=== PATIENT | female | born 1980 | race Caucasian/White ===

== ENCOUNTER 2019-06-02 12:48 | Emergency (ER) | payer MEDICARE, MEDICAID, SELFPAY ==
[2019-06-02 13:08] VITALS: BP 106/82; PULSE 75; RESP 18; TEMP 37.2; O2SAT 98
--- NOTE | 2019-06-02 13:11 | ED.GENADULT ---
HPI - General Adult General Chief complaint: Ear Stated complaint: nausea/dizziness Time Seen by Provider: 06/02/19 13:12 Source: patient and RN notes reviewed Mode of arrival: ambulatory Limitations: no limitations History of Present Illness HPI narrative: This is a 38 years old female presents to the office for an evaluation of nausea and dizziness for a few weeks. Associated with left ear clogged/can't hear really well. Denies other symptoms include chest pain, cough, shortness of breath, vomiting, or diarrhea. Denies sick contact. She does not remember when the last time she got her lithium level check. Her friend drove her here. Related Data Home Medications Medication Instructions Recorded Confirmed lithium carbonate 450 mg PO BID 06/02/19 06/02/19 propranolol 10 mg PO BID 06/02/19 06/02/19 risperidone [Risperdal] 3 mg PO BID 06/02/19 06/02/19 Allergies Allergy/AdvReac Type Severity Reaction Status Date / Time piperacillin Allergy Mild Rash Verified 06/02/19 13:10 Review of Systems Review of Systems: Narrative: CONSTITUTIONAL: Denies fever ENT: Reports earsclogged. CARDIOVASCULAR: Denies chest pain, palpitation RESPIRATORY: Denies dyspnea, wheezing, cough GASTROINTESTINAL: Denies abdominal pain, vomiting, diarrhea. Reports nausea. GENITOURINARY: Denies urinary symptoms or discharge SKIN: Denies rash MUSCULOSKELETAL: Denies acute back pain NEUROLOGIC: Denies lightheaded. Reports dizziness. PMFSH Past Medical History Medical History (Updated 06/02/19 @ 13:31 by GRISELDA Bowman) Bipolar 1 disorder, depressed Diverticulitis of large intestine with perforation and abscess Family History Family History Other Asthma Diabetes mellitus Hypertension Social History Social History Smoking status: Never smoker Alcohol intake: never Gender identity (if verbalized by the patient): Female Comments At time of signature, I agree with nursing past medical, surgical, social and family history. There is no relevant family history pertinent to the presenting complaint. Exam Narrative: Exam Narrative: GENERAL: This is a well-nourished, answer question appropriately, in no apparent distress. EYES: TANNA. EMOI. Sclera clear/white. Vision is grossly intact. EARS: External ears normal, auditory canals clear and without drainage, bilateral TMs noted cerumen impaction. Hearing grossly intact. NOSE: External nose normal with no obvious nasal discharge, nares without redness, no rhinorrhea. THROAT: Mucous membranes moist, posterior pharynx clear. NECK: Neck supple, non-tender without lymphadenopathy, masses or thyromegaly. CARDIOVASCULAR: Regular rate and rhythm without murmurs, gallops, or rubs. RESPIRATORY: Clear to auscultation. Breath sounds equal bilaterally. No wheezes, rales, or rhonchi. GASTROINTESTINAL: Abdomen soft, non-tender, nondistended. Bowel sounds are active. No hepato-splenomegaly, or palpable masses. No guarding. SKIN: warm, intact with no suspicious lesions or rash, good texture and turgor. NEURO: awake, alert, and oriented to person, place and time. There were no obvious focal neurologic abnormalities. Steady gait Gilberto Coma Scale Eye Opening: Spontaneous 4 [place] Coma Scale Motor: Obeys Commands 6 Gilberto Coma Scale Verbal: Oriented 5 Course Course Emergency Course: I spoke to patient psychiatrist regarding her lithium level, the psychiatrist stated that her lithium level needs to be rechecked (last one was over a year ago) however she highly doubt is lithium level because patient is on a very low dose of Lithum. However she stated that patient liver enzyme is very high, which she sent a letter to patient to follow-up with primary care doctor however patient did not remember seeing the letter or contacting her primary care doctor regarding this matter. Vital Signs V
== END 2019-06-02 13:45 | disposition home or self-care (01) ==
PROVIDERS: Emergency Provider Nurse Practitioner; PCP Family Medicine
DX: H61.23 Impacted cerumen, bilateral (principal); F31.9 Bipolar disorder, unspecified
CPT/HCPCS: 69209; 99212; A9270; G0463

== ENCOUNTER 2019-06-21 11:13 | Emergency (ER) | payer MEDICARE, MEDICAID, SELFPAY ==
--- NOTE | ~2019-06-21 | CT_ITS ---
EXAMINATION: CT abdomen pelvis w con DATE: 06/21/2019 12:46 INDICATION: Low abdominal pain. TECHNIQUE: Computed tomography (CT) of the abdomen and pelvis was performed with 100 mL Omnipaque 350 intravenous contrast. Automated exposure control and iterative reconstruction technique were employe d. The dose-length product was 1200.52 mGy-cm. COMPARISON: CT abdomen and pelvis 12/22/2017 FINDINGS: The visualized portions of the lung bases demonstrate mild atelectasis. There is a trace le ft pleural effusion. The heart size is normal. No pericardial effusion. Again seen is a 13 mm hyperen hancing mass in right hepatic lobe, likely a hemangioma or focal nodular hyperplasia. The gallbladder is distended, likely secondary to fasting. The gallbladder, pancreas, adrenal glands, and right kidn ey are normal. There is cortical thinning of left kidney. There are scattered diverticula of the colo n. There is fat stranding around a sigmoid diverticulum with trace fluid. There is wall thickening of the sigmoid colon. These findings are consistent with diverticulitis. The appendix is normal. There are mildly dilated loops of jejunum, consistent with adynamic ileus. There are no pathologically enla rged lymph nodes. There is a 2.0 cm cyst in the vulva on the right. There is mild thoracolumbar spond ylosis. IMPRESSION: 1. Acute sigmoid diverticulitis. No perforation or drainable abscess. Reviewed, dictated and finalized at location A.
[2019-06-21 11:24] VITALS: BP 130/90; PULSE 130; RESP 26; TEMP 36.7; O2SAT 100
--- NOTE | 2019-06-21 11:30 | ED.ABDPAIN ---
HPI - Abdominal Pain General Chief Complaint: Abdominal Pain Stated Complaint: stomach pain and no BM x 1 week Time Seen by Provider: 06/21/19 11:21 Source: patient, RN notes reviewed and old records reviewed Mode of arrival: ambulatory Limitations: no limitations History of Present Illness HPI narrative: Pt is a 38 y/o female who presents to the ED with c/o worsening suprapubic pain starting 1 week ago. According to old records, she was diagnosed with diverticulitis with perforation and an abscess in 2018. She notes that she hasn't had a normal BM for the past week. Pt states that she has had constant pain in her suprapubic region for the past week. She rates her pain at 8/10. Pt reports nausea, vomiting, and a decreased intake accompanying her pain, but denies any dysuria or urinary frequency. She notes that she hasn't taken any pain medications for her symptoms. MD elicited complaint: abdominal pain Pertinent past history: diverticulitis Onset (ago): week(s) (1) Pain Consistency: constant Location: suprapubic Pain scale (0-10): 8 Associated symptoms: nausea, vomiting, constipation and other (decreased intake) Related Data Home Medications Medication Instructions Recorded Confirmed lithium carbonate 450 mg PO BID 06/02/19 06/02/19 propranolol 10 mg PO BID 06/02/19 06/02/19 risperidone [Risperdal] 3 mg PO BID 06/02/19 06/02/19 Allergies Allergy/AdvReac Type Severity Reaction Status Date / Time piperacillin Allergy Mild Rash Verified 06/02/19 13:10 Review of Systems Review of Systems: All systems reviewed & are unremarkable except as noted in HPI and below Constitutional: Constitutional: Reports other (decreased intake) Gastrointestinal: Gastrointestinal: Reports abdominal pain (suprapubic pain), Reports constipation, Reports nausea and Reports vomiting Genitourinary: Genitourinary: Denies dysuria and Denies other (urinary frequency) FOR[facility]LY [facility], [facility] Past Medical History Medical History Anxiety Bipolar 1 disorder, depressed Diverticulitis of large intestine with perforation and abscess GERD (gastroesophageal reflux disease) Surgical History Surgical History History of colon surgery repair of perforated diverticulum and abscess History of lumpectomy of right breast Social History Social History Smoking status: Never smoker Alcohol intake: never Gender identity (if verbalized by the patient): Female Exam Const: General: alert Nutritional Appearance: obese Orientation/consciousness: patient oriented x3 Eyes: Conjunctivae: conjunctivae normal Pupils: Equal, round and reactive pupils present EOM: EOMs intact bilaterally Neck: Neck: no lymphadenopathy Chest: Chest palpation & inspection: normal inspection of the chest Resp: Effort & Inspection: normal respiratory effort, not tachypneic and no use of accessory muscles Auscultation: clear to auscultation bilaterally Cardio: Rate: regular rate Rhythm: regular rhythm Heart sounds: no murmurs GI: GI Palp: Yes Soft to palpation, Yes Tenderness to palpation present (GI) (bilateral lower abdomen), No Guarding due to palpation present (GI), No Rigid due to palpation and No Hernia present Skin: General skin exam: normal color Rashes: no rashes Neuro: General: patient oriented x3, moves all extremities, no meningeal signs, no focal motor deficits and CN's II-XI intact bilaterally Course Reevaluation(s) Reevaluation #1: Patient states she feels better. I discussed she has diverticulitis with no abscess or perforation. She was given dose of levaquin. Date: 06/21/19 Time: 14:46 Vital Signs Vital signs: Vital Signs Temperature 98.1 F 06/21/19 11:24 Pulse Rate 130 H 06/21/19 11:24 Respiratory Rate 26 H 06/21/19 11:24 Blood Pressure 130/90 06/21/19 11:24 Pulse Oximetry 100 06/21/19 11:24
[2019-06-21] MEDS: ONDANSETRON INJ 4 MG/2 ML VIAL IV PUSH (11:44)
[2019-06-21] MEDS: LACTATED RINGERS 1,000 ML 999 ML IV CONT (11:44)
[2019-06-21] MEDS: MORPHINE SULFATE 4 MG/ML INJ IV PUSH (11:44)
[2019-06-21 12:06] LABS: Basophils Percent Auto 0.1 % (0.2-1.2); Eosinophils Percent Auto 0.2 % (0-4.4); Hematocrit 42.2 % (37.0-47.0); Hemoglobin 14.1 g/dL (12.0-15.0); Immature Granulocyte Absolute 0.04 K/mm3 (0.00-0.031); Immature Granulocyte Percent A 0.3 % (0-0.5); Lymphocytes Absolute Auto 1.38 K/mm3 (0.9-3.2); Lymphocytes Percent Auto 9.8 % (18.3-44.2); Mean Corpuscular HGB Conc 33.4 g/dl (32-36); Mean Corpuscular Hemoglobin 29.7 pg (26-34); Mean Corpuscular Volume 88.8 fl (80-100); Neutrophils Absolute Auto 11.6 K/mm3 (1.3-6.7); Neutrophils Percent Auto 82.6 % (45.5-73.1); Platelet Count Result 239 k/mm3 (150-375); Red Blood Count 4.75 M/mm3 (4.2-5.4); Red Cell Distribution Width 11.9 % (11.5-14.5)
[2019-06-21 12:21] LABS: Alanine Aminotransferase 58 U/L (4-35); Alkaline Phosphatase 96 U/L (38-126); Aspartate Amino Transferase 29 U/L (14-36); Bilirubin,Total 1.4 mg/dL (0.2-1.3); Blood Urea Nitrogen 6 mg/dL (7-17); Calcium 8.8 mg/dL (8.4-10.2); Carbon Dioxide 22 mmol/L (22-30); Chloride 102 mmol/L (98-107); Estimated Glomerular Filt Rate > 60; Glucose 154 mg/dL (65-105); Lipase 98 U/L (23-300); Potassium 3.5 mmol/L (3.4-5.0); Sodium 134 mmol/L (137-145)
[2019-06-21 12:31] VITALS: BP 117/89; PULSE 98; RESP 26; O2SAT 99
[2019-06-21 12:37] LABS: Lithium < 0.2 mmol/L (0.6-1.2)
[2019-06-21 12:44] LABS: Add Urine Microscopic? YES; Appearance Urine Cloudy (Clear); Bacteria Urine Trace /hpf; Bilirubin Urine Negative (Negative); Blood Urine 2+ (Negative); Color Urine Amber (Yellow); Glucose Urine UA Negative (Negative); Ketones Urine 1+ mg/dL (Negative); Leukocyte Esterase Ur 1+ LEU/UL (Negative); Mucus Urine Moderate /lpf; Nitrate Urine Negative (Negative); Protein Urine 2+ mg/dL (Negative); Specific Grav Ur 1.025 (1.001-1.035); Squamous Epithelial Cell Urine Many /hpf (Few); WBC Urine 31-50 /hpf
[2019-06-21 13:31] VITALS: BP 117/89; PULSE 98; RESP 20; O2SAT 98
[2019-06-21 14:39] VITALS: PULSE 100; RESP 28; O2SAT 100
[2019-06-21 14:58] VITALS: BP 127/78; PULSE 103; RESP 20; O2SAT 100
== END 2019-06-21 14:59 | disposition home or self-care (01) ==
PROVIDERS: Emergency Provider General Practice; PCP Family Medicine
DX: K57.32 Diverticulitis of large intestine without perforation or abscess without bleeding (principal); F41.9 Anxiety disorder, unspecified; F31.9 Bipolar disorder, unspecified; K21.9 Gastro-esophageal reflux disease without esophagitis
CPT/HCPCS: 36415; 74177; 80053; 80178; 81001; 81025; 83605; 83690; 85025; 87086; 87088; 96361; 96374; 96375; 99284; J1956; J2270; J2405; J7120; Q9967

== ENCOUNTER 2019-12-30 00:26 | Emergency (ER) | payer MEDICARE, MEDICAID, SELFPAY ==
--- NOTE | ~2019-12-30 | XR_ITS ---
EXAMINATION: XR nasal bones min 3V DATE: 12/30/2019 01:03 INDICATION: Nose injury. TECHNIQUE: 3 views of the nasal bones were obtained. COMPARISON: None. FINDINGS: There are fractures of the nasal bones with up to 1 mm displacement. There is mild rightwar d deviation of the nasal septum. IMPRESSION: 1. Fractures of the nasal bones. Reviewed, dictated and finalized at location A.
[2019-12-30 00:30] VITALS: BP 143/102; PULSE 71; RESP 16; TEMP 36.4; O2SAT 99
--- NOTE | 2019-12-30 01:43 | ED.GENADULT ---
HPI - General Adult General Chief complaint: Head Injury Stated complaint: possible broken nose Time Seen by Provider: 12/30/19 00:36 Source: patient Mode of arrival: ambulatory Limitations: no limitations History of Present Illness HPI narrative: This patient is a 39 year old female who presents for evaluation of a possible broken nose. She states a piece of tile accidental fell hitting her in the nose. She reports nasal pain and tenderness. She also reports bleeding from her nose. She states her nose has stopped bleeding. She denies LOC or getting hit in the head. Related Data Home Medications Medication Instructions Recorded Confirmed lithium carbonate 450 mg PO BID 06/02/19 06/02/19 propranolol 10 mg PO BID 06/02/19 06/02/19 risperidone [Risperdal] 3 mg PO BID 06/02/19 06/02/19 Allergies Allergy/AdvReac Type Severity Reaction Status Date / Time piperacillin Allergy Mild Rash Verified 06/02/19 13:10 Review of Systems Review of Systems: All systems reviewed & are unremarkable except as noted in HPI and below PMFSH Past Medical History Medical History (Updated 12/30/19 @ 01:49 by Saundra Gomez MD) Anxiety Bipolar 1 disorder, depressed Diverticulitis of large intestine with perforation and abscess GERD (gastroesophageal reflux disease) Surgical History Surgical History History of colon surgery repair of perforated diverticulum and abscess History of lumpectomy of right breast Family History Family History Other Asthma Diabetes mellitus Hypertension Social History Social History Smoking status: Never smoker Alcohol intake: never Gender identity (if verbalized by the patient): Female Exam Const: General: no acute distress and alert Orientation/consciousness: patient oriented x3 HENMT: Head: normocephalic General nose exam: Abnormal nasal septum present (no septal hematoma) deviated and Other nasal findings present (bleedin nares, nasal tenderness) Throat: posterior oropharynx normal Eyes: EOM: EOMs intact bilaterally Resp: Effort & Inspection: normal respiratory effort Skin: General skin exam: normal color Rashes: no rashes Neuro: General: patient oriented x3 and moves all extremities Course Vital Signs Vital signs: Vital Signs Temperature 97.5 F L 12/30/19 00:30 Pulse Rate 71 12/30/19 00:30 Respiratory Rate 16 12/30/19 00:30 Blood Pressure 143/102 H 12/30/19 00:30 Pulse Oximetry 99 12/30/19 00:30 Temperature 98.2 F 12/30/19 01:55 Pulse Rate 84 12/30/19 01:55 Respiratory Rate 17 12/30/19 01:55 Blood Pressure 145/97 H 12/30/19 01:55 Pulse Oximetry 98 12/30/19 01:55 Medical Decision Making Vital Signs Vital Signs: Vital Signs Temperature 97.5 F L 12/30/19 00:30 Pulse Rate 71 12/30/19 00:30 Respiratory Rate 16 12/30/19 00:30 Blood Pressure 143/102 H 12/30/19 00:30 Pulse Oximetry 99 12/30/19 00:30 Temperature 98.2 F 12/30/19 01:55 Pulse Rate 84 12/30/19 01:55 Respiratory Rate 17 12/30/19 01:55 Blood Pressure 145/97 H 12/30/19 01:55 Pulse Oximetry 98 12/30/19 01:55 Imaging Data Radiologist's impression: nasal xray- nasal fracture present Discharge Plan Discharge Clinical Impression: Closed fracture nasal bone Patient Disposition: Home, Self-Care Condition: Stable Instructions: Antibiotic Form, Nasal Fracture (ED) Additional Instructions: Please read nose fracture instructions. You can follow up with your primary care physician. Take ibuprofen or naproxen for your pain. Prescriptions: No Action risperidone [Risperdal] 3 mg Tablet 3 mg PO BID RF: 0 lithium carbonate 450 mg Tablet Extended Release 450 mg PO BID RF: 0 propranolol 10 mg Tablet 10 mg PO BID RF: 0 hydrocodone-acetaminophen 5-325 m
[2019-12-30 01:55] VITALS: BP 145/97; PULSE 84; RESP 17; TEMP 36.8; O2SAT 98
== END 2019-12-30 01:56 | disposition home or self-care (01) ==
PROVIDERS: Emergency Provider General Practice; PCP Family Medicine
DX: S02.2XXA Fracture of nasal bones, initial encounter for closed fracture (principal); F31.9 Bipolar disorder, unspecified; F41.9 Anxiety disorder, unspecified; K21.9 Gastro-esophageal reflux disease without esophagitis; W20.8XXA Other cause of strike by thrown, projected or falling object, initial encounter
CPT/HCPCS: 70160; 99283

== ENCOUNTER 2020-05-24 12:44 | Outpatient (CLI) | payer MEDICARE, MEDICAID, SELFPAY ==
--- NOTE | ~2020-05-24 | MM_ITS ---
EXAMINATION: MM screening alverto BI w geronimo HISTORY: Screening mammogram TECHNIQUE: Craniocaudal and mediolateral oblique 3-D tomosynthesis images were obtained and synthetic 2-D images were generated. CAD analysis was submitted and interpreted. COMPARISON: No prior mammogram is available for comparison at this institution. BREAST PARENCHYMAL COMPOSITION: There are scattered areas of fibroglandular density. FINDINGS: There is no evidence of suspicious mass, calcification, or architectural distortion to sugg est malignancy in either breast. There has been no suspicious interval change. IMPRESSION: 1. No mammographic evidence of malignancy. 2. Recommend routine screening mammography in one year. BI-RADS Category 1: Negative Reviewed, dictated and finalized at location A. [employer]
== END 2020-05-24 12:45 | disposition home or self-care (01) ==
LOC: ANHIMG 12:47
PROVIDERS: PCP Family Medicine; Visit Provider Obstetrics & Gynecology
DX: Z12.31 Encounter for screening mammogram for malignant neoplasm of breast (principal)
CPT/HCPCS: 77063; 77067

== ENCOUNTER 2021-02-07 13:46 | Emergency (ER) | payer OTHER, SELFPAY ==
[2021-02-07 14:12] VITALS: BP 134/83; PULSE 69; RESP 16; TEMP 37.3; O2SAT 99
--- NOTE | 2021-02-07 14:15 | ED.URI ---
HPI - URI/Sore Throat General Chief Complaint: Upper Respiratory Infection Stated Complaint: cough Time Seen by Provider: 02/07/21 14:15 Source: patient and RN notes reviewed Mode of arrival: ambulatory Limitations: no limitations History of Present Illness HPI Narrative: 40-year-old female presents with concern for cough, chest, back pain with cough, runny, nasal congestion, sore throat for approximately 5 days. She has not been vaccinated for Covid. She denies known sick contacts. She reports she has been using cough drops. Denies other intervention. She denies shortness of breath, body aches, chills, sweats, fever. MD elicited complaint: cough Related Data Home Medications Medication Instructions Recorded Confirmed lithium carbonate 450 mg PO BID 06/02/19 02/07/21 propranolol 40 mg PO BID 06/02/19 02/07/21 aripiprazole 10 mg PO DAILY 02/07/21 02/07/21 dicyclomine 10 mg PO DAILY 02/07/21 02/07/21 Allergies Allergy/AdvReac Type Severity Reaction Status Date / Time No Known Allergies Allergy Verified 02/07/21 14:48 Review of Systems Review of Systems: CONSTITUTIONAL: Reports malaise. Denies chills, sweats, or fever. EYES: Denies visual changes, redness, or discharge. ENT: Reports rhinorrhea, congestion, and sore throat. Denies sinus pain, otalgia CARDIOVASCULAR: Denies chest pain, palpitations, or edema. RESPIRATORY: Reports cough. Denies dyspnea. GASTROINTESTINAL: Denies abdominal pain, nausea, vomiting, diarrhea SKIN: Denies rash or itching. MUSCULOSKELETAL: Denies myalgia. NEUROLOGIC: Denies headache. All systems reviewed & are unremarkable except as noted in HPI and below PMFSH Past Medical History Medical History (Updated 02/07/21 @ 15:10 by Betsy Nathan NP) Anxiety Bipolar 1 disorder, depressed Diverticulitis of large intestine with perforation and abscess GERD (gastroesophageal reflux disease) Surgical History Surgical History History of colon surgery repair of perforated diverticulum and abscess History of lumpectomy of right breast Family History Family History Other Asthma Diabetes mellitus Hypertension Social History Social History Smoking status: Never smoker Alcohol intake: never Gender identity (if verbalized by the patient): Female Comments At time of signature, agree with nursing past medical, surgical, social and family history. There is no relevant family history pertinent to the presenting complaint Exam Narrative: GENERAL: Well-appearing, well-nourished, and in no acute distress. HEAD: Normocephalic EYES: PERRLA, conjunctivae clear ENT: Nares clear, clear discharge. Mucous membranes moist. TM pearly frankel with dull light reflex bilaterally; no tragal tenderness. Oropharynx mildly erythematous without lesions. Tonsils not enlarged and without exudate, no drooling, no hoarseness, no trismus, uvula midline. NECK: Supple. No lymphadenopathy CHEST: Clear to auscultation, breath sounds equal. No wheezing, rhonchi, rales, or stridor. No respiratory distress, speaks in full sentences. Cough noted HEART: Regular rate and rhythm. No murmur heard. SKIN: Warm, dry, no rash. NEURO: Alert and oriented x3. PSYCH: Normal mood and affect Course Course Emergency Course: Patient is aware of diagnosis, understands and agrees to treatment plan. Anticipatory guidance given. Patient agrees to follow-up as directed and is aware of reasons to seek care at the emergency department. Portions of this record may have been created with voice recognition software Vital Signs Vital signs: Vital Signs Temperature 99.2 F 02/07/21 14:12 Pulse Rate 69 02/07/21 14:12 Respiratory Rate 16 02/07/21 14:12 Blood Pressure 134/83 02/07/21 14:12 Pulse Oximetry 99 02/07/21 14:12 Temperature 99.2 F 02/07/21 14:12 Pulse Rate 69
== END 2021-02-07 15:15 | disposition home or self-care (01) ==
PROVIDERS: Emergency Provider Nurse Practitioner; PCP Family Medicine
DX: J06.9 Acute upper respiratory infection, unspecified (principal); Z20.822 Contact with and (suspected) exposure to COVID-19
CPT/HCPCS: 87081; 87426; 87880; 99213; C9803; G0463

== ENCOUNTER 2021-08-09 09:00 | Outpatient (CLI) | payer OTHER, SELFPAY ==
--- NOTE | ~2021-08-09 | MM_ITS ---
EXAMINATION: MM screening alverto BI w geronimo HISTORY: Screening mammogram TECHNIQUE: Craniocaudal and mediolateral oblique 3-D tomosynthesis images were obtained and synthetic 2-D images were generated. CAD analysis was submitted and interpreted. COMPARISON: 10/24/2020 bilateral screening mammogram BREAST PARENCHYMAL COMPOSITION: There are scattered areas of fibroglandular density. FINDINGS: There is no evidence of suspicious mass, calcification, or architectural distortion to sugg est malignancy in either breast. There has been no suspicious interval change. IMPRESSION: 1. No mammographic evidence of malignancy. 2. Recommend routine screening mammography in one year. BI-RADS Category 1: Negative Reviewed, dictated and finalized at location A.
== END 2021-08-09 09:01 | disposition home or self-care (01) ==
PROVIDERS: PCP Family Medicine; Visit Provider Family Medicine
DX: Z12.31 Encounter for screening mammogram for malignant neoplasm of breast (principal)
CPT/HCPCS: 77063; 77067

== ENCOUNTER 2022-06-04 11:25 | Emergency (ER) | payer MEDICARE, MEDICAID, SELFPAY ==
[2022-06-04 11:31] VITALS: BP 147/102; PULSE 86; RESP 20; TEMP 37; O2SAT 100
[2022-06-04 14:20] LABS: Basophils Percent Auto 0.2 % (0.2-1.2); Eosinophils Absolute Auto 0.1 K/mm3 (0-0.3); Eosinophils Percent Auto 0.9 % (0-4.4); Hematocrit 46.8 % (37.0-47.0); Hemoglobin 15.3 g/dL (12.0-15.0); Immature Granulocyte Absolute 0.04 K/mm3 (0.00-0.031); Immature Granulocyte Percent A 0.3 % (0-0.5); Lymphocytes Absolute Auto 2.57 K/mm3 (0.9-3.2); Lymphocytes Percent Auto 22.1 % (18.3-44.2); Mean Corpuscular HGB Conc 32.7 g/dl (32-36); Mean Corpuscular Hemoglobin 29.9 pg (26-34); Mean Corpuscular Volume 91.6 fl (80-100); Mean Platelet Volume 9.9 fl (7.4-10.4); Monocytes Absolute Auto 0.6 K/mm3 (0.1-0.6); Monocytes Percent Auto 5.5 % (2.6-8.5); Neutrophils Absolute Auto 8.3 K/mm3 (1.3-6.7); Platelet Count Result 230 k/mm3 (150-375); Red Blood Count 5.11 M/mm3 (4.2-5.4); Red Cell Distribution Width 12.6 % (11.5-14.5); White Blood Count 11.7 K/mm3 (4.5-10.0)
[2022-06-04 14:29] LABS: Alanine Aminotransferase 84 U/L (6-35); Albumin Level 4.5 g/dL (3.5-5.1); Alkaline Phosphatase 99 U/L (38-126); Anion Gap 8 mmol/L (8-16); Aspartate Amino Transferase 50 U/L (14-36); Blood Urea Nitrogen 8 mg/dL (7-17); Calcium 8.9 mg/dL (8.4-10.2); Carbon Dioxide 26 mmol/L (22-30); Chloride 106 mmol/L (98-107); Estimated CRCL calculation 109 ml/min; Estimated Glomerular Filt Rate > 60; Glucose 105 mg/dL (65-110); Lipase 47 U/L (23-300); Potassium 4.4 mmol/L (3.4-5.0); Sodium 140 mmol/L (137-145)
--- NOTE | 2022-06-04 14:46 | PC.NURSE ---
Pt left before seeing doctor. Pt did not want to wait any longer.
[2022-06-04 14:51] LABS: Appearance Urine Clear (Clear); Bacteria Urine None Seen /hpf; Bilirubin Urine Negative (Negative); Blood Urine 1+ (Negative); Color Urine Yellow (Yellow); Glucose Urine UA Negative (Negative); Ketones Urine Negative (Negative); Leukocyte Esterase Ur Negative LEU/UL (Negative); Nitrate Urine Negative (Negative); Non Pathogenic Casts 0-2; Protein Urine Negative (Negative); Specific Grav Ur 1.015 (1.001-1.035); Squamous Epithelial Cell Urine Occasional /hpf (Few); WBC Urine 0-5 /hpf; pH Urine 7.5 (5.0-9.0)
[2022-06-04 14:58] LABS: Add Urine Microscopic? YES
== END 2022-06-04 14:46 | disposition left against medical advice (07) ==
PROVIDERS: Emergency Provider General Practice; PCP Family Medicine
DX: R10.9 Unspecified abdominal pain (principal); Z53.21 Procedure and treatment not carried out due to patient leaving prior to being seen by health care provider
CPT/HCPCS: 36415; 80053; 81001; 83690; 85025; 99199

== ENCOUNTER 2022-08-13 08:39 | Outpatient (CLI) | payer MEDICARE, MEDICAID, SELFPAY ==
--- NOTE | ~2022-08-13 | MM_ITS ---
EXAMINATION: MM screening alverto BI w geronimo HISTORY: Screening mammogram TECHNIQUE: Craniocaudal and mediolateral oblique 3-D tomosynthesis images were obtained and synthetic 2-D images were generated. CAD analysis was submitted and interpreted. COMPARISON: 08/09/2021, 05/24/2020 bilateral screening mammogram examinations BREAST PARENCHYMAL COMPOSITION: There are scattered areas of fibroglandular density. FINDINGS: There is no evidence of suspicious mass, calcification, or architectural distortion to sugg est malignancy in either breast. There has been no suspicious interval change. IMPRESSION: 1. No mammographic evidence of malignancy. 2. Recommend routine screening mammography in one year. BI-RADS Category 1: Negative Reviewed, dictated and finalized at location A.
== END 2022-08-13 08:40 | disposition home or self-care (01) ==
LOC: ANHIMG 08:44
PROVIDERS: PCP Family Medicine; Visit Provider Student in an Organized Health Care Education/Training Program
DX: Z12.31 Encounter for screening mammogram for malignant neoplasm of breast (principal)
CPT/HCPCS: 77063; 77067